=== PATIENT | male | born 1995 | race Caucasian/White ===

== ENCOUNTER 2023-05-17 20:25 | Emergency (ER) | payer BC, MEDICAID ==
[~2023-05-17] VITALS: Ht 180.3 cm; Wt 79.0 kg
[2023-05-17 20:31] VITALS: O2SAT 98
[2023-05-17] MEDS: KETOROLAC 15MG/ML VIAL IM ONE (21:52)
[2023-05-17] MEDS: CYCLOBENZAPRINE 10MG TABLET PO ONE (21:52)
[2023-05-17] MEDS: ACETAMINOPHEN 325MG TABLET PO ONE (21:52)
[2023-05-17 22:32] VITALS: TEMP 99.2
[2023-05-17] MEDS ORDERED: SENN-215 MT (23:41)
[2023-05-18 00:13] VITALS: BP 132/84; PULSE 83; RESP 18
== END 2023-05-18 01:30 | disposition home or self-care (01) ==
LOC: ER 20:38
DX: K59.00 Constipation, unspecified (principal); Z88.2 Allergy status to sulfonamides
CPT/HCPCS: 99283; 72100; 96372; J1885